=== PATIENT | female | born 1975 | race American Indian/Alaskan Native ===

== ENCOUNTER 2017-01-12 16:15 | Emergency (ER) | payer MEDICAID, OTHER ==
[2017-01-12 16:32] VITALS: BP 119/82
[2017-01-12] MEDS ORDERED: Ketorolac 30 MG/ML SDV IM ONE (17:01)
--- NOTE | 2017-01-15 10:27 | ER ---
SUBJECTIVE: The patient is a 41-year-old female who states she fell about at 9 o'clock this morning or more about 8 hours ago. She took nothing for pain. She was at her basement. Reportedly, she fell onto her right side, onto the hard plate or some object. She also has a lump on the back of her head. She had no loss of consciousness. No nausea or vomiting. No vision changes. She has no headaches except for she hit her head in the back, although where the bump is back. No neck pain. No specific back pain. No abdominal pain. She does have right lateral rib pain, however. It hurts if she moves in certain ways or she if takes deep breath. It did not hurt as bad initially but it has gotten worse. Again, no nausea or vomiting. No bleeding. No bowel or bladder changes. Denies . She took no medicines. PAST MEDICAL HISTORY: Denied. She states she is normally healthy. She does wear glasses. CURRENT MEDICINES: Denied. ALLERGIES: She denies being allergic to no meds. SOCIAL HISTORY: Noncontributory. REVIEW OF SYSTEMS: No syncope, near-syncope, changes in vision. No ENT issues, neck pain, back pain. She does have chest pain along her right lateral ribs, where she made contact with a hard object when falling. No upper or lower extremity pain. She is able to ambulate. OBJECTIVE: Vital signs: Stable. She is afebrile. General: No respiratory distress. HEENT: She is normocephalic and atraumatic with the exception of mild contusion to back of scalp with small bump area. No laceration. No repair needed. No depression, no crepitus. No Francis sign. No raccoon eyes. No clear drainage from ENT. Neck: Full range of motion and nontender. Back: No spinal tenderness. Chest: Chest wall is unremarkable with the exception of right lateral ribs. There is no bruising. No crepitus. No deformity. She can take deep breaths but is painful to her at this area. Abdomen: Otherwise unremarkable. Extremities: Lower and upper extremities, otherwise, unremarkable. X-ray is performed of her chest and right ribs. There are no fractures noted. No acute findings. EMERGENCY ROOM COURSE: She was given injection of Toradol. ASSESSMENT: Fall with contusion to the right chest wall as well as occipital scalp contusion. No loss of conscious. X-ray not showing any fractures. PLANS: Discharged home in stable and improved condition. Recommend take Tylenol and ibuprofen on a regular basis per package instructions, go and buy some [id number] and begin taking up. This will be her baseline pain relief. A small prescription of tramadol 50 mg 1 p.o. t.i.d. p.r.n. severe pain not controlled by Tylenol or ibuprofen, can be used, #20, no refills. She will follow up with her PCP as needed. Recommend heat, ice, deep breathing, keep active, and hot showers. [facility] /[id number]
== END 2017-01-12 17:20 | disposition home or self-care (01) ==
LOC: DL.ED 16:15
DX: S20.211A Contusion of right front wall of thorax, initial encounter (principal); S00.03XA Contusion of scalp, initial encounter; W19.XXXA Unspecified fall, initial encounter
CPT/HCPCS: 71101; 96372; 99283; J1885

== ENCOUNTER 2017-03-03 14:29 | Emergency (ER) | payer MEDICAID, OTHER ==
[2017-03-03] MEDS ORDERED: Sodium Chloride 0.9% 10 ML Syringe FLUSH PRN (14:39)
[2017-03-03] MEDS ORDERED: Ondansetron 4 MG/2 ML SDV IV ONE (14:41)
[2017-03-03] MEDS ORDERED: Activated Charcoal/Water Susp 50 GM/240 ML Tube PO ONE ×2 (14:41→15:32)
[2017-03-03] MEDS ORDERED: Sodium Chloride 0.9% 1,000 ML IV ONE (14:42)
[2017-03-03 15:14] LABS: CHLORIDE,CL 102 mmol/L (101-111); SODIUM,NA 134 mmol/L (135-145)
[2017-03-03 15:15] LABS: ACETAMINOPHEN < 10
--- NOTE | 2017-03-03 16:54 | EDM.PDOC ---
Scribed by Rebeka Montero 03/03/17 1640 Rory Burgos MD ED HPI Behavioral Health - General Chief Complaint: Drug or Alcohol Abuse Stated Complaint: BY AMBULANCE Time Seen by Provider: 03/03/17 14:33 Source of Information: Reports: EMS, RN, RN notes reviewed Exam Limitations: Reports: Altered mental status, Other (loss of consciousness) - History of Present Illness INITIAL COMMENTS - FREE TEXT/NARRATIVE: Arrives by ambulance approximately 30 minutes after ingesting approximately 30 tablets of Duloxetine or some other medication or combination of meds. EMS reports several empty pill bottles and different tablets scattered in piles on her dresser. Patient admits to suicide attempt. Patient unable to provide any further history. Onset of Symptoms: Reports: today Severity: severe - SAD Persons Scale (SPS) SPS Sex: Female SPS Age: Between 18-65 Years of Age SPS Depression: Yes SPS Previous Suicide Attempts: Yes SPS Rational Thinking Loss: Yes SPS Social Support Deficit: No SPS Organized Suicide Plan: Yes SPS No Spouse/Significant Other: Yes SPS Sickness: No SPS Sad Person Scale Score: 5 - Related Data Allergies Allergy/AdvReac Type Severity Reaction Status Date / Time No Known Allergies Allergy Verified 12/16/13 17:19 Home Medications: Home Meds . [No Known Home Meds] 12/16/13 [History] Past Medical History HEENT History: Reports: Impaired vision Psychiatric History: Reports: Depression, Suicide attempt, Other (see below) ( self cutting) Endocrine/Metabolic History: Reports: Obesity/BMI 30+ Social & Family History - Family History Family Medical History: Noncontributory - Tobacco Use Smoking Status *Q: Current Every Day Smoker Years of Tobacco use: 30 Packs/Tins Daily: 0.5 Used Tobacco, but Quit: No Second Hand Smoke Exposure: Yes - Caffeine Use Caffeine Use: Reports: Coffee, Soda, Tea - Alcohol Use Days Per Week of Alcohol Use: 1 Number of Drinks Per Day: 0 Total Drinks Per Week: 0 - Recreational Drug Use Recreational Drug Use: Yes Drug Use in Last 12 Months: Yes Recreational Drug Type: Reports: Marijuana/Hashish Recreational Drug Last Use: 12-12-13 ED ROS GENERAL - Review of Systems Review Of Systems: ROS reveals no pertinent complaints other than HPI. ED EXAM, BEHAVIORAL HEALTH - Physical Exam Exam: See Below Exam Limited By: No limitations General Appearance: obese, other (unkempt and decreased LOC.) Eye Exam: bilateral eye: normal inspection Ears: normal external exam, normal canal, hearing grossly normal, normal TMs Nose: normal inspection, normal mucosa, no blood Throat/Mouth: Normal inspection, Normal lips, Normal teeth, Normal gums, Normal oropharynx, Normal voice, No airway compromise Head: atraumatic, normocephalic Neck: normal inspection, supple, non-tender, full range of motion Respiratory/Chest: no respiratory distress, lungs clear, normal breath sounds, no accessory muscle use, chest non-tender Cardiovascular: normal peripheral pulses, regular rate, rhythm, no edema, no gallop, no JVD, no murmur, no rub GI/Abdominal: other (obese benign abdomen.) Back Exam: normal inspection, full range of motion, NT Extremities: normal inspection, normal range of motion, non-tender, normal capillary refill, no pedal edema Neurological: other (decreased LOC, moves all extremities with purposeful movement. Follows commands. ) Psychiatric: other (suicidal) Skin Exam: Warm, Dry, Intact, Normal color, No rash Comments: GCS: 4/4/6: 14 EKG INTERPRETATION EKG Date: 03/03/17 Time: 15:03 Rhythm: other (sinus rhythm) Rate (beats/min): 78 [place]: LAD-left axis deviation P-wave: present QRS: normal ST-T: normal QT: normal Comparison: NA - no prior EKG COURSE, BEHAVIORAL HEALTH COMP - Course Orders, Labs, Meds: Active Orders 24 hr Category Date Time Status EKG 12 Lead [EKG Documentation Completion] [RC] STAT Care 03/03/17 14:38 Active Insert Frazier Catheter [Insert Urinary Catheter] [OM.PC] Care 03/03/17 14:45 Ordered Q24H Peripheral IV Care [RC] . DIRECTED Care 03/03/17 14:40 Active Urinary Catheter Assessment [RC] ASDIRECTED Care 03/03/17 14:41 Active Sodium Chloride 0.9% [Saline Flush] Med 03/03/17 14:39 Active 10 ml FLUSH ASDIRECTED PRN NG [Nasogastric Orogastric Tube Insertion] [OM.PC] Oth 03/03/17 14:40 Ordered Routine Peripheral IV Insertion Adult [OM.PC] Stat Oth 03/03/17 14:38 Ordered Suicide Precautions [OM.PC] Routine Oth 03/03/17 14:40 Ordered Medication Orders Sodium Chloride (Saline Flush) 10 ml FLUSH ASDIRECTED PRN PRN Reason: Keep Vein Open Last Admin: 03/03/17 15:09 Dose: 10 ml Laboratory Tests 03/03/17 03/03/17 03/03/17 Range/Units 14:40 14:40 14:40 WBC 6.5 (5.0-10.0) 10^3/uL RBC 4.80 (4.2-5.4) 10^6/uL Hgb 14.2 (12.0-16.0) g/dL Hct 43.1 (37.0-47.0) % MCV 89.8 (80-100) fL MCH 29.6 (27.0-34.0) pg MCHC 32.9 L (33.0-35.0) g/dL Plt Count 294 (150-450) 10^3/uL Neut % (Auto) 49.8 (42.2-75.2) % Lymph % (Auto) 38.6 (20.5-50.1) % [place] % (Auto) 9.8 H (2-8) % Eos % (Auto) 1.8 (1.0-3.0) % Baso % (Auto) 0.0 (0.0-1.0) % PT 9.8 (9.0-12.0) SEC INR 1.0 (0.9-1.2) APTT 25.8 (22.0-34.0) SEC Sodium 134 L (135-145) mmol/L Potassium 3.5 L (3.6-5.0) mmol/L Chloride 102 (101-111) mmol/L Carbon Dioxide 23.0 (21.0-31.0) mmol/L Anion Gap 12.5 BUN 7 (7-18) mg/dL Creatinine 0.7 (0.6-1.3) mg/dL Est Cr Clr Drug Dosing TNP Estimated GFR (MDRD) > 60 BUN/Creatinine Ratio 10.00 Glucose 87 (74-105) mg/dL Calcium 8.5 (8.4-10.2) mg/dl Total Bilirubin 0.3 (0.2-1.0) mg/dL AST 18 (10-42) IU/L ALT 16 (10-60) IU/L Alkaline Phosphatase 95 (42-121) IU/L Troponin I < 0.02 (0.00-0.02) ng/ml Total Protein 7.6 (6.7-8.2) g/dl Albumin 4.1 (3.2-5.5) g/dl Globulin 3.5 Albumin/Globulin Ratio 1.17 Amylase 52 (28-100) U/L Lipase 28 (22-51) U/L Urine Color (YELLOW) Urine Appearance (CLEAR) Urine pH (5.0-9.0) Ur Specific [place] (1.005-1.030) Urine Protein (NEGATIVE) Urine Glucose (UA) (NEGATIVE) Urine Ketones (NEGATIVE) Urine Occult Blood (NEGATIVE) Urine Nitrite (NEGATIVE) Urine Bilirubin (NEGATIVE) Urine Urobilinogen (0.2-1.0) mg/dL Ur Leukocyte Esterase (NEGATIVE) Urine RBC /HPF Urine WBC (0-5/HPF) /HPF Ur Epithelial Cells /HPF Urine Bacteria (0-FEW/HPF) /HPF Urine Mucus /LPF Urine HCG, Qual Salicylates < 4 Urine Opiates Screen (NEGATIVE) Ur Oxycodone Screen (NEGATIVE) Urine Methadone Screen (NEGATIVE) Acetaminophen < 10 Ur Barbiturates Screen (NEGATIVE) U Tricyclic Antidepress (NEGATIVE) Ur Phencyclidine Scrn (NEGATIVE) Ur Amphetamine Screen (NEGATIVE) U Methamphetamines Scrn (NEGATIVE) Urine MDMA Screen (NEGATIVE) U Benzodiazepines Scrn (NEGATIVE) Urine Cocaine Screen (NEGATIVE) U Marijuana (THC) Screen (NEGATIVE) Ethyl Alcohol 127 mg/dL 03/03/17 03/03/17 03/03/17 Range/Units 14:40 14:40 14:40 WBC (5.0-10.0) 10^3/uL RBC (4.2-5.4) 10^6/uL Hgb (12.0-16.0) g/dL Hct (37.0-47.0) % MCV (80-100) fL MCH (27.0-34.0) pg MCHC (33.0-35.0) g/dL Plt Count (150-450) 10^3/uL Neut % (Auto) (42.2-75.2) % Lymph % (Auto) (20.5-50.1) % [place] % (Auto) (2-8) % Eos % (Auto) (1.0-3.0) % Baso % (Auto) (0.0-1.0) % PT (9.0-12.0) SEC INR (0.9-1.2) APTT (22.0-34.0) SEC Sodium (135-145) mmol/L Potassium (3.6-5.0) mmol/L Chloride (101-111) mmol/L Carbon Dioxide (21.0-31.0) mmol/L Anion Gap BUN (7-18) mg/dL Creatinine (0.6-1.3) mg/dL Est Cr Clr Drug Dosing Estimated GFR (MDRD) BUN/Creatinine Ratio Glucose (74-105) mg/dL Calcium (8.4-10.2) mg/dl Total Bilirubin (0.2-1.0) mg/dL AST (10-42) IU/L ALT (10-60) IU/L Alkaline Phosphatase (42-121) IU/L Troponin I (0.00-0.02) ng/ml Total Protein (6.7-8.2) g/dl Albumin (3.2-5.5) g/dl Globulin Albumin/Globulin Ratio Amylase (28-100) U/L Lipase (22-51) U/L Urine Color Yellow (YELLOW) Urine Appearance Slightly cloudy (CLEAR) Urine pH 5.5 (5.0-9.0) Ur Specific [place] 1.020 (1.005-1.030) Urine Protein Negative (NEGATIVE) Urine Glucose (UA) Negative (NEGATIVE) Urine Ketones Negative (NEGATIVE) Urine Occult Blood Moderate H (NEGATIVE) Urine Nitrite Negative (NEGATIVE) Urine Bilirubin Negative (NEGATIVE) Urine Urobilinogen 1.0 (0.2-1.0) mg/dL Ur Leukocyte Esterase Negative (NEGATIVE) Urine RBC 5-10 H /HPF Urine WBC 0-5 (0-5/HPF) /HPF Ur Epithelial Cells Moderate H /HPF Urine Bacteria Few (0-FEW/HPF) /HPF Urine Mucus Moderate H /LPF Urine HCG, Qual Negative Salicylates Urine Opiates Screen Negative (NEGATIVE) Ur Oxycodone Screen Negative (NEGATIVE) Urine Methadone Screen Negative (NEGATIVE) Acetaminophen Ur Barbiturates Screen Negative (NEGATIVE) U Tricyclic Antidepress Negative (NEGATIVE) Ur Phencyclidine Scrn Negative (NEGATIVE) Ur Amphetamine Screen Positive H (NEGATIVE) U Methamphetamines Scrn Positive H (NEGATIVE) Urine MDMA Screen Negative (NEGATIVE) U Benzodiazepines Scrn Negative (NEGATIVE) Urine Cocaine Screen Negative (NEGATIVE) U Marijuana (THC) Screen Positive H (NEGATIVE) Ethyl Alcohol mg/dL Medications Generic Name Dose Route Start Last Admin Trade Name Freq PRN Reason Stop Dose Admin Sodium Chloride 10 ml 03/03/17 14:39 03/03/17 15:09 Saline Flush FLUSH 10 ml ASDIRECTED PRN Administration Keep Vein Open Discontinued Medications Generic Name Dose Route Start Last Admin Trade Name Freq PRN Reason Stop Dose Admin Charcoal 50 gm 03/03/17 14:41 03/03/17 15:09 Actidose-Aqua PO 03/03/17 14:42 50 gm ONETIME ONE Administration Charcoal 50 gm 03/03/17 15:32 03/03/17 15:54 Actidose-Aqua PO 03/03/17 15:33 50 gm ONETIME ONE Administration Sodium Chloride 1,000 mls @ 999 mls/hr 03/03/17 14:42 03/03/17 15:09 Normal Saline IV 03/03/17 15:42 999 mls/hr .BOLUS ONE Administration Ondansetron HCl 4 mg 03/03/17 14:41 03/03/17 15:09 Zofran IV 03/03/17 14:42 4 mg ONETIME ONE Administration Re-Assessment/Re-Exam: NG tube by RN and Frazier catheter by RN. Departure - Departure Time of Disposition: 15:45 Disposition: DC/Tfer to Acute Hospital 02 Condition: critical Clinical Impression: Suicide attempt by substance overdose Qualifiers: Encounter type: initial encounter Qualified Code(s): T65.92XA - Toxic effect of unspecified substance, intentional self-harm, initial encounter Alcohol intoxication Qualifiers: Complication of substance-induced condition: uncomplicated Qualified Code(s): F10.920 - Alcohol use, unspecified with intoxication, uncomplicated Forms: ED Department Discharge, Interfacility Transfer EMTALA - My Orders Last 24 Hours: My Active Orders 03/03/17 14:38 EKG 12 Lead [EKG Documentation Completion] [RC] STAT Peripheral IV Insertion Adult [OM.PC] Stat 03/03/17 14:39 Sodium Chloride 0.9% [Saline Flush] 10 ml FLUSH ASDIRECTED PRN 03/03/17 14:40 Peripheral IV Care [RC] . DIRECTED NG [Nasogastric Orogastric Tube Insertion] [OM.PC] Routine Suicide Precautions [OM.PC] Routine 03/03/17 14:41 Urinary Catheter Assessment [RC] ASDIRECTED 03/03/17 14:45 Insert Frazier Catheter [Insert Urinary Catheter] [OM.PC] Q24H - Assessment/Plan Last 24 Hours: My Active Orders 03/03/17 14:38 EKG 12 Lead [EKG Documentation Completion] [RC] STAT Peripheral IV Insertion Adult [OM.PC] Stat 03/03/17 14:39 Sodium Chloride 0.9% [Saline Flush] 10 ml FLUSH ASDIRECTED PRN 03/03/17 14:40 Peripheral IV Care [RC] . DIRECTED NG [Nasogastric Orogastric Tube Insertion] [OM.PC] Routine Suicide Precautions [OM.PC] Routine 03/03/17 14:41 Urinary Catheter Assessment [RC] ASDIRECTED 03/03/17 14:45 Insert Frazier Catheter [Insert Urinary Catheter] [OM.PC] Q24H I have read and agree with the documentation that has been completed regarding this visit. By signing this record, I attest that the documentation was completed in my physical presence and is an accurate record of the encounter.
[2017-03-03 17:40] VITALS: BP 132/96
--- NOTE | 2017-03-25 14:37 | EKG ---
03/03/2017 - COY REYEZ - EKG per my reading, shows sinus rhythm at a rate of 78, no acute ST changes. [facility] /[id number]
== END 2017-03-03 16:20 ==
LOC: DL.ED 14:29
DX: T43.212A Poisoning by selective serotonin and norepinephrine reuptake inhibitors, intentional self-harm, initial encounter (principal); F10.920 Alcohol use, unspecified with intoxication, uncomplicated; F32.9 Major depressive disorder, single episode, unspecified; E66.9 Obesity, unspecified; F17.210 Nicotine dependence, cigarettes, uncomplicated; Y90.6 Blood alcohol level of 120-199 mg/100 ml
CPT/HCPCS: 36415; 43753; 51702; 71010; 80053; 80305; 81001; 81025; 82150; 83690; 84484; 85025; 85610; 85730; 93005; 96374; 99285; G0480; J2405; J7030; J7050

== ENCOUNTER 2019-02-27 07:10 | Day surgery (SDC) | payer MEDICAID, OTHER ==
[2019-02-27] MEDS ORDERED: Bupivacaine 0.5% 30 ML SDV INJECT ONE ×3 (07:11→09:51)
[2019-02-27] MEDS ORDERED: Propofol 200 MG/20 ML SDV IV ONE (07:11)
[2019-02-27] MEDS ORDERED: Betamethasone Acetate/Betamethasone Sod Phosphate 30 MG/5 ML MDV IM ONE (07:11)
[2019-02-27] MEDS ORDERED: Ondansetron 4 MG/2 ML SDV IV ONE (07:11)
[2019-02-27] MEDS ORDERED: Lidocaine 1% 30 ML SDV INJECT ONE ×3 (07:11→09:51)
[2019-02-27] MEDS ORDERED: fentaNYL 100 MCG/2 ML SDV IV ONE (07:11)
[2019-02-27] MEDS ORDERED: Midazolam 1 MG/ML 2 ML SDV IV ONE (07:11)
[2019-02-27] MEDS ORDERED: Lidocaine 1% 30 ML SDV ONE (07:46)
[2019-02-27] MEDS ORDERED: Bupivacaine 0.5% 30 ML SDV ONE (07:46)
[2019-02-27] MEDS ORDERED: Sodium Chloride 0.9% 10 ML Syringe FLUSH PRN ×2 (07:54)
[2019-02-27] MEDS ORDERED: Lactated Ringers 1,000 ML IV SCH (08:00)
[2019-02-27] MEDS ORDERED: Betamethasone Acetate/Betamethasone Sod Phosphate 30 MG/5 ML MDV ONE ×2 (08:10→09:54)
[2019-02-27] MEDS ORDERED: Acetaminophen/oxyCODONE 325-5 MG Tab PO PRN (10:25)
--- NOTE | 2019-02-27 10:28 | PCM.OPNOTE ---
- General Post-Op/Procedure Note Date of Surgery/Procedure: 02/27/19 Operative Procedure(s): right foot open plantar fasciectomy with bone spur excision, left foot plantar fascia cortisone injection Pre Op Diagnosis: b/l foot plantar fasciitis with bone spur Post-Op Diagnosis: varun Anesthesia Technique: Local, MAC Primary Surgeon: Melissa Johnson Anesthesia Provider: Irwin Porras EBL in mLs: 5 Complications: none Condition: Good Free Text/Narrative:: Pt tolerated procedure well and was transported to recovery with vascular status intact to right foot. Well padded L&U splint with foot in slight dorsiflexion. Injection to left foot.
--- NOTE | 2019-02-27 12:16 | OR ---
DATE: 02/27/2019 PREOPERATIVE DIAGNOSIS: Bilateral plantar fasciitis with bone spur. POSTOPERATIVE DIAGNOSIS: Bilateral plantar fasciitis with bone spur. PROCEDURE PERFORMED: 1. Right foot open plantar fasciectomy with bone spur excision. 2. Left foot plantar fascia cortisone injection. ANESTHESIA: Local MAC with preoperative local block of 10 mL of 1:1 mixture of 1% lidocaine plain with 0.5% Marcaine plain. TOURNIQUET TIME: 29 minutes, pneumatic ankle tourniquet. ESTIMATED BLOOD LOSS: Minimal. SPECIMEN REMOVED: None. COMPLICATIONS: None. INDICATIONS: Renee is a 43-year-old female, who presents with bilateral heel pain. She has been dealing with this heel pain for several years now. She had been doctoring out at [facility] for the heel pain where they had tried multiple different options including custom orthotics, physical therapy, stretching exercises, activity and shoe modifications with no relief. She is here for surgical consult today as she has failed conservative therapy. X-rays of the bilateral feet reveal no signs of fracture present, plantar heel spur present. The patient voiced good understanding of the proposed procedure and possible complications and elects to have surgery at this time. DESCRIPTION OF PROCEDURE: The patient was taken to the operating room lying in supine position. After adequate anesthesia induction as described above, the right foot was prepped and draped in the usual sterile fashion. A pneumatic ankle tourniquet was inflated to 225 mmHg. Attention was then directed to the plantar aspect of the right foot at the instep, a transverse skin incision was made in this area to gain access to the plantar fascia band. Sharp and blunt dissection was performed down to the level of the plantar fascia band. There was noted to be severe thickening of the band in this area at the insertion site. An approximately 1 centimeter squared section of the plantar fascia band, both the central and medial aspect, was removed and the area was released. The area was inspected and no further tightness was noted. A rongeur was used to remove the bone spur at the plantar calcaneus and a bone rasp was used to smooth out the area. Fluoroscopy was used to verify the spur had been completely excised. The area was irrigated with copious amounts of sterile saline. Deep closure was completed with 3-0 Vicryl and skin closure was completed with 4-0 nylon. After the sterile dressing was applied to the right foot, the left foot was then prepped with alcohol and an injection of 2 mL of betamethasone was injected into the left foot plantar fascia insertion site. For the right foot, a fluff, Xeroform, Webril, and a well-padded L and U splint were applied with the foot in 90 degrees. She will be nonweightbearing. The patient tolerated the procedure well and was transferred to recovery with vital signs stable in good condition with vascular status intact to the right foot as noted by immediate hyperemia upon deflation of the ankle tourniquet. She was then discharged home when she met hospital discharge requirements. [facility] /[id number]
[2019-02-27 13:32] VITALS: BP 130/84
== END 2019-02-27 12:24 | disposition home or self-care (01) ==
LOC: DL.SDS 07:10
PROVIDERS: ATTEND Podiatrist
DX: M72.2 Plantar fascial fibromatosis (principal); M77.31 Calcaneal spur, right foot; E55.9 Vitamin D deficiency, unspecified; F17.210 Nicotine dependence, cigarettes, uncomplicated; Z79.899 Other long term (current) drug therapy
CPT/HCPCS: 20550; 28062; 28119; J0702; J2001; J2250; J2405; J2704; J3010; J3490; J7120

== ENCOUNTER 2020-01-10 03:19 | Emergency (ER) | payer MEDICAID, OTHER ==
[2020-01-10 03:35] VITALS: BP 109/75; PULSE 107
[2020-01-10 03:57] LABS: ANION GAP 18.1 mEq/L (7-13); CHLORIDE,CL 106 mmol/L (98-107); SODIUM,NA 141 mmol/L (136-145)
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
[2020-01-10] MEDS: Potassium Chloride 10 MEQ Tab.ER PO ONE (05:10)
== END 2020-01-10 05:12 | disposition home or self-care (01) ==
LOC: DL.ED 03:19
DX: S02.2XXA Fracture of nasal bones, initial encounter for closed fracture (principal); S02.40DA Maxillary fracture, left side, initial encounter for closed fracture; F10.120 Alcohol abuse with intoxication, uncomplicated; Y90.8 Blood alcohol level of 240 mg/100 ml or more; E66.9 Obesity, unspecified; F17.210 Nicotine dependence, cigarettes, uncomplicated; Z79.899 Other long term (current) drug therapy; Z68.31 Body mass index [BMI] 31.0-31.9, adult; Y04.0XXA Assault by unarmed brawl or fight, initial encounter
CPT/HCPCS: 36415; 70450; 70486; 80053; 80307; 85025; 99284; A9270

== ENCOUNTER 2021-06-30 20:22 | Emergency (ER) | payer MEDICAID ==
--- NOTE | 2021-06-30 19:57 | EDM.PDOCBH ---
ED HPI GENERAL MEDICAL PROBLEM - General Stated Complaint: AMBULANCE Time Seen by Provider: 06/30/21 20:30 Source of Information: Reports: Patient, EMS, Old Records, RN Notes Reviewed History Limitations: Reports: Intoxication - History of Present Illness INITIAL COMMENTS - FREE TEXT/NARRATIVE: Renee is a 45 y/o female who presents to the ED via [facility] for complaints of intoxication and accidental Trazodone overdose. The patient states she typically takes two of her prescribed Trazodone for sleep as one no longer works for her, however she took three today as her family members were home. The patient notes she has been drinking large quantities of alcohol for the past several days; she denies recreational drug use. She denies recent illness, fever, shaking chills, vision changes, dizziness, chest pain/pressure, shortness of breath, nausea, vomiting, abdominal pain, or diarrhea. She is unsure of her last meal. The patient denies suicidality and has no plan to harm herself. - Related Data Allergies Allergy/AdvReac Type Severity Reaction Status Date / Time No Known Allergies Allergy Verified 01/10/20 03:37 Home Meds: Home Meds Cholecalciferol (Vitamin D3) [Vitamin D3] 1,000 units PO ASDIRECTED 02/26/19 [History] DULoxetine HCl [Cymbalta] 60 mg PO DAILY 02/26/19 [History] DULoxetine [Cymbalta] 30 mg PO DAILY 02/26/19 [History] Ibuprofen [Motrin] 800 - 1,600 mg PO BID PRN 02/26/19 [History] Lidocaine 5% [Lidoderm 5%] 1 - 2 patch TOP ASDIRECTED PRN 02/26/19 [History] Methocarbamol [Robaxin] 500 mg PO QID PRN 02/26/19 [History] Past Medical History - Past Health History Medical/Surgical History: Denies Medical/Surgical History HEENT History: Reports: Impaired Vision Cardiovascular History: Reports: None Respiratory History: Reports: None Gastrointestinal History: Reports: None Genitourinary History: Reports: None 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: , 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 Musculoskeletal History: Reports: Back Pain, Chronic, Fracture Other Musculoskeletal History: RIGHT WRIST FRACTURE Neurological History: Reports: Concussion Psychiatric History: Reports: Depression, Suicide Attempt, Other (See Below) Endocrine/Metabolic History: Reports: Obesity/BMI 30+, Vitamin D Deficiency Hematologic History: Reports: None Immunologic History: Reports: None Oncologic (Cancer) History: Reports: None Dermatologic History: Reports: None - Infectious Disease History Infectious Disease History: Reports: None - Past Surgical History Head Surgeries/Procedures: Reports: None HEENT Surgical History: Reports: None Cardiovascular Surgical History: Reports: None Respiratory Surgical History: Reports: None GI Surgical History: Reports: None Female Surgical History: Reports: None Endocrine Surgical History: Reports: None Neurological Surgical History: Reports: None Musculoskeletal Surgical History: Reports: None Oncologic Surgical History: Reports: None Dermatological Surgical History: Reports: None Social & Family History - Family History Family Medical History: No Pertinent Family History Respiratory: Reports: Asthma Endocrine/Metabolic: Reports: Diabetes, type II - Caffeine Use Caffeine Use: Reports: Coffee, Soda ED ROS GENERAL - Review of Systems Review Of Systems: Comprehensive ROS is negative, except as noted in HPI. ED EXAM, BEHAVIORAL HEALTH - Physical Exam Exam: See Below Exam Limited By: Intoxication General Appearance: Alert, Obese, Other (Unkept and intoxicated) Eye Exam: Bilateral Eye: Conjunctival Injection, EOMI, PERRL (4mm) Ears: Normal External Exam, Normal Canal, Hearing Grossly Normal, Normal TMs Nose: Normal Inspection, Normal Mucosa, No Blood Throat/Mouth: Normal Voice, No Airway Compromise. No: Normal Lips (Dry, cracked), Normal Oropharynx (Dry mucous membranes) Head: Atraumatic, Normocephalic Neck: Normal Inspection, Supple, Non-Tender, Full Range of Motion. No: Tender Lateral, Tender Midline Respiratory/Chest: No Respiratory Distress, Lungs Clear, Normal Breath Sounds, No Accessory Muscle Use, Chest Non-Tender Cardiovascular: Normal Peripheral Pulses, Regular Rate, Rhythm, No Gallop, No Murmur, No Rub GI/Abdominal: Normal Bowel Sounds, Soft, Non-Tender (Female) Exam: Deferred Rectal (Female) Exam: Deferred Back Exam: Normal Inspection, Full Range of Motion Extremities: Normal Inspection, Normal Range of Motion, Non-Tender, Normal Capillary Refill Neurological: Alert, Oriented x 3, Opens Eyes to Commands, Withdraws to Pain. No: Memory Loss Remote Events, Memory Loss Recent Events, Tongue Deviation (L), Tongue Deviation (R) Psychiatric: Alert, Oriented, Restless, Inattentive. No: Non-Communicative, Poor Eye Contact, Uncooperative, Withdrawn, Homicidal Thoughts, Cheondoism Delusions, Suicidal Plan, Suicidal Thoughts, Tangential Thoughts, Auditory Hallucinations, Visual Hallucinations, Grandiose Thoughts, Pressured Speech, Paranoid Thoughts, Threatening Behavior Skin Exam: Warm, Dry, Intact, Normal color, No rash. No: Cyanosis, Diaphoretic, Ecchymosis, Erythema, Jaundice, Mottled, Needle johnson, Pallor, Petechiae, Signs of self injury #1 Interpretation EKG Date: 07/01/21 Time: 01:48 Rhythm: NSR Rate (Beats/Min): 69 [place]: Normal P-Wave: Present QRS: Normal ST-T: Normal QT: Normal [place]/PQ Interval: 0.145 Comparison: No Change EKG Interpretation Comments: NSR; q-wave III; No evidence of acute myocardial ischemia COURSE, BEHAVIORAL HEALTH COMP - Course Vital Signs: Last Vital Signs Temp 97.0 F 06/30/21 21:03 Pulse 88 06/30/21 21:03 Resp 14 06/30/21 21:03 BP 104/55 L 06/30/21 21:03 Pulse Ox 93 L 06/30/21 21:03 Orders, Labs, Meds: Laboratory Tests 06/30/21 06/30/21 06/30/21 Range/Units 20:20 20:20 20:20 WBC 7.7 (5.0-10.0) 10^3/uL RBC 4.18 L (4.2-5.4) 10^6/uL Hgb 12.6 (12.0-16.0) g/dL Hct 38.5 (37.0-47.0) % MCV 92.1 D (80-100) fL MCH 30.1 (27.0-34.0) pg MCHC 32.7 L (33.0-35.0) g/dL Plt Count 268 (150-450) 10^3/uL Neut % (Auto) 60.1 (42.2-75.2) % Lymph % (Auto) 30.3 (20.5-50.1) % Boyd % (Auto) 7.8 (2-8) % Eos % (Auto) 1.7 (1.0-3.0) % Baso % (Auto) 0.1 (0.0-1.0) % Sodium 147 H (136-145) mmol/L Potassium 2.8 L (3.5-5.1) mmol/L Chloride 107 (98-107) mmol/L Carbon Dioxide 26 (21-32) mmol/L Anion Gap 16.8 H (7-13) mEq/L BUN 11 (7-18) mg/dL Creatinine 0.63 (0.55-1.02) mg/dL Est Cr Clr Drug Dosing TNP Estimated GFR (MDRD) > 60 BUN/Creatinine Ratio 17.5 (No establ ref range) Glucose 113 H (70-99) mg/dL Lactic Acid 1.4 (0.4-2.0) mmol/L Calcium 8.4 L (8.5-10.1) mg/dL Magnesium 2.1 (1.8-2.4) mg/dL Total Bilirubin 0.1 L (0.2-1.0) mg/dL AST 119 H (15-37) U/L ALT 140 H (14-59) U/L Alkaline Phosphatase 108 (46-116) U/L Troponin I High Sens < 4 (<=51) pg/mL C-Reactive Protein 1.3 H (0.0-0.9) mg/dL Total Protein 6.8 (6.4-8.2) g/dL Albumin 3.2 L (3.4-5.0) g/dL Globulin 3.6 Albumin/Globulin Ratio 0.89 HCG, Qual Negative Urine Color (YELLOW) Urine Appearance (CLEAR) Urine pH (5.0-9.0) Ur Specific [place] (1.005-1.030) Urine Protein (NEGATIVE) Urine Glucose (UA) (NEGATIVE) Urine Ketones (NEGATIVE) Urine Occult Blood (NEGATIVE) Urine Nitrite (NEGATIVE) Urine Bilirubin (NEGATIVE) Urine Urobilinogen (0.2-1.0) mg/dL Ur Leukocyte Esterase (NEGATIVE) Urine RBC (0-5) /HPF Urine WBC (0-5/HPF) /HPF Ur Epithelial Cells (NOT SEEN) /HPF Urine Bacteria (0-FEW/HPF) /HPF Salicylates (2.8-20(Therapeutic)) mg/dL Urine Opiates Screen (NEGATIVE) Ur Oxycodone Screen (NEGATIVE) Urine Methadone Screen (NEGATIVE) Acetaminophen 0 L (10-30 (Therapeutic)) ug/mL Ur Barbiturates Screen (NEGATIVE) U Tricyclic Antidepress (NEGATIVE) Ur Phencyclidine Scrn (NEGATIVE) Ur Amphetamine Screen (NEGATIVE) U Methamphetamines Scrn (NEGATIVE) Urine MDMA Screen (NEGATIVE) U Benzodiazepines Scrn (NEGATIVE) Urine Cocaine Screen (NEGATIVE) U Marijuana (THC) Screen (NEGATIVE) Ethyl Alcohol 257 (0) mg/dL 06/30/21 06/30/21 06/30/21 Range/Units 20:20 20:27 20:27 WBC (5.0-10.0) 10^3/uL RBC (4.2-5.4) 10^6/uL Hgb (12.0-16.0) g/dL Hct (37.0-47.0) % MCV (80-100) fL MCH (27.0-34.0) pg MCHC (33.0-35.0) g/dL Plt Count (150-450) 10^3/uL Neut % (Auto) (42.2-75.2) % Lymph % (Auto) (20.5-50.1) % Boyd % (Auto) (2-8) % Eos % (Auto) (1.0-3.0) % Baso % (Auto) (0.0-1.0) % Sodium (136-145) mmol/L Potassium (3.5-5.1) mmol/L Chloride (98-107) mmol/L Carbon Dioxide (21-32) mmol/L Anion Gap (7-13) mEq/L BUN (7-18) mg/dL Creatinine (0.55-1.02) mg/dL Est Cr Clr Drug Dosing Estimated GFR (MDRD) BUN/Creatinine Ratio (No establ ref range) Glucose (70-99) mg/dL Lactic Acid (0.4-2.0) mmol/L Calcium (8.5-10.1) mg/dL Magnesium (1.8-2.4) mg/dL Total Bilirubin (0.2-1.0) mg/dL AST (15-37) U/L ALT (14-59) U/L Alkaline Phosphatase (46-116) U/L Troponin I High Sens (<=51) pg/mL C-Reactive Protein (0.0-0.9) mg/dL Total Protein (6.4-8.2) g/dL Albumin (3.4-5.0) g/dL Globulin Albumin/Globulin Ratio HCG, Qual Urine Color Light yellow (YELLOW) Urine Appearance Slightly cloudy (CLEAR) Urine pH 7.0 (5.0-9.0) Ur Specific [place]stein 1.015 (1.005-1.030) Urine Protein Negative (NEGATIVE) Urine Glucose (UA) Negative (NEGATIVE) Urine Ketones Negative (NEGATIVE) Urine Occult Blood Large H (NEGATIVE) Urine Nitrite Negative (NEGATIVE) Urine Bilirubin Negative (NEGATIVE) Urine Urobilinogen 0.2 (0.2-1.0) mg/dL Ur Leukocyte Esterase Small H (NEGATIVE) Urine RBC 0-5 (0-5) /HPF Urine WBC 0-5 (0-5/HPF) /HPF Ur Epithelial Cells Occasional (NOT SEEN) /HPF Urine Bacteria Moderate H (0-FEW/HPF) /HPF Salicylates < 2.8 L (2.8-20(Therapeutic)) mg/dL Urine Opiates Screen Negative (NEGATIVE) Ur Oxycodone Screen Negative (NEGATIVE) Urine Methadone Screen Negative (NEGATIVE) Acetaminophen (10-30 (Therapeutic)) ug/mL Ur Barbiturates Screen Negative (NEGATIVE) U Tricyclic Antidepress Negative (NEGATIVE) Ur Phencyclidine Scrn Negative (NEGATIVE) Ur Amphetamine Screen Negative (NEGATIVE) U Methamphetamines Scrn Positive H (NEGATIVE) Urine MDMA Screen Negative (NEGATIVE) U Benzodiazepines Scrn Negative (NEGATIVE) Urine Cocaine Screen Negative (NEGATIVE) U Marijuana (THC) Screen Negative (NEGATIVE) Ethyl Alcohol (0) mg/dL Medications Discontinued Medications Generic Name Dose Route Start Last Admin Trade Name Freq PRN Reason Stop Dose Admin Multivitamins/Minerals 10 ml/ 1,011.2 mls @ 999 mls/hr 06/30/21 19:56 06/30/21 21:58 Thiamine HCl 100 mg/ Folic IV 06/30/21 20:56 999 mls/hr Acid 1 mg/ Lactated Ringer's .BOLUS ONE Administration Potassium Chloride 20 meq/ 100 mls @ 50 mls/hr 06/30/21 21:19 06/30/21 21:59 Premix IV 06/30/21 23:18 50 mls/hr ONETIME ONE Administration Nitrofurantoin Macrocrystals 100 mg 07/01/21 01:24 07/01/21 01:38 Nitrofurantoin Monohydrate/Macrocrystalline 100 Mg Cap PO 07/01/21 01:25 100 mg ONETIME ONE Administration Potassium Chloride 40 meq 07/01/21 01:16 07/01/21 01:38 Potassium Chloride 10 Meq Tab.Er PO 07/01/21 01:17 40 meq ONETIME ONE Administration Re-Assessment/Re-Exam: 06/30/21 Poison Control contacted given supratherapeutic dose of Trazodone. Blood work and EKG performed. Banana bag initiated. Will continue to monitor patient, per Poison Control recommendations. KCl 40mEq PO administered. Macrobid administered. Findings of examination and lab work reviewed with patient. Will treat UTI with Macrobid. Discussed supportive cares for UTI with patient. Patient instructed to follow up with primary care provider regarding today's visit. Red flag signs and symptoms which would warrant reevaluation reviewed. Patient verbalized understanding and agreement with the plan of care. Departure - Departure Time of Disposition: :22 Disposition: Home, Self-Care 01 Condition: Fair Clinical Impression: Hypokalemia, Methamphetamine use Acute alcohol intoxication Qualifiers: Complication of substance-induced condition: uncomplicated Qualified Code(s): F10.920 - Alcohol use, unspecified with intoxication, uncomplicated Accidental medication overdose Qualifiers: Encounter type: initial encounter Qualified Code(s): T50.901A - Poisoning by unspecified drugs, medicaments and biological substances, accidental (unintentional), initial encounter Urinary tract infection Qualifiers: Urinary tract infection type: acute cystitis Hematuria presence: with hematuria Qualified Code(s): N30.01 - Acute cystitis with hematuria - Discharge Information *PRESCRIPTION DRUG MONITORING PROGRAM REVIEWED*: Not Applicable *COPY OF PRESCRIPTION DRUG MONITORING REPORT IN PATIENT ENOCH: Not Applicable Instructions: Hypokalemia, Urinary Tract Infection, Adult Referrals: PCP,None [Ordering Only Provider] - Forms: ED Department Discharge Additional Instructions: Rx: Macrobid 1.) Take all of your antibiotic until gone, even as symptoms improve. 2.) Eat a potassium-rich diet. 3.) Drink plenty of water to stay hydrated and to flush out kidneys/bladder. 4.) Do not use methamphetamines. 5.) Do not drink alcohol to excess.
[~2021-06-30 20:22] MED LIST: MVI, Adult with Vitamin K 10 ML, Thiamine 100 MG, Folic Acid 1 MG in Lactated Ringers 1... IV ONE
[2021-06-30 20:39] LABS: AMPHETAMINES,URINE NEGATIVE (NEGATIVE); BARBITURATES,URINE NEGATIVE (NEGATIVE); BENZODIAZEPINE,URINE NEGATIVE (NEGATIVE); MDMA (ECSTASY), URINE NEGATIVE (NEGATIVE); METHADONE,URINE NEGATIVE (NEGATIVE); METHAMPHETAMINES,URINE POSITIVE (NEGATIVE); OPIATES,URINE NEGATIVE (NEGATIVE); OXYCODONE,URINE NEGATIVE (NEGATIVE); PHENCYCLIDINE,URINE NEGATIVE (NEGATIVE); TCA,URINE NEGATIVE (NEGATIVE)
[2021-06-30 20:48] LABS: ANION GAP 16.8 mEq/L (7-13); CHLORIDE,CL 107 mmol/L (98-107); SODIUM,NA 147 mmol/L (136-145)
[2021-06-30 20:49] LABS: ACETAMINOPHEN 0 ug/mL (10-30 (Therapeutic))
[2021-06-30 21:04] VITALS: BP 104/55; PULSE 88
[2021-06-30] MEDS ORDERED: Potassium Chloride 20 MEQ in Premix Bag 1 BAG IV ONE (21:19)
[2021-07-01] MEDS ORDERED: Potassium Chloride 10 MEQ Tab.ER PO ONE (01:16)
[2021-07-01] MEDS ORDERED: Nitrofurantoin Monohydrate/Macrocrystalline 100 MG Cap PO ONE (01:24)
== END 2021-07-01 02:00 | disposition home or self-care (01) ==
LOC: DL.ED 20:22
DX: T43.211A Poisoning by selective serotonin and norepinephrine reuptake inhibitors, accidental (unintentional), initial encounter (principal); F10.120 Alcohol abuse with intoxication, uncomplicated; N30.01 Acute cystitis with hematuria; E87.6 Hypokalemia; F15.90 Other stimulant use, unspecified, uncomplicated; E66.9 Obesity, unspecified; Y90.8 Blood alcohol level of 240 mg/100 ml or more; Z79.899 Other long term (current) drug therapy
CPT/HCPCS: 36415; 80053; 80143; 80179; 80305; 80307; 81001; 83605; 83735; 84484; 84703; 85025; 86140; 87086; 93005; 96365; 96366; 96368; 99284; A9270; J3411; J3480; J7120; J3490

== ENCOUNTER 2021-09-21 13:44 | Emergency (ER) | payer MEDICAID ==
[2021-09-21 13:49] VITALS: BP 126/98; PULSE 112
[2021-09-21 14:22] LABS: ANION GAP 17.9 mEq/L (7-13); CHLORIDE,CL 102 mmol/L (98-107); SODIUM,NA 137 mmol/L (136-145)
--- NOTE | 2021-09-21 14:29 | EDM.PDOC ---
ED HPI GENERAL MEDICAL PROBLEM - General Chief Complaint: Respiratory Problem Time Seen by Provider: 09/21/21 14:15 Source of Information: Reports: Patient History Limitations: Reports: No Limitations - History of Present Illness INITIAL COMMENTS - FREE TEXT/NARRATIVE: This 45 yo female patient was brought to the ED by EMS due to a cough, COVID, shortness of breath and chest tightness. The patient reports she tested positive for COVID yesterday after being exposed to COVID from her sister. The patient reports she has been having chest pain over the past 3 days do to a constant cough. The patient reports she was called today by someone from [id number], the patient reported her symptoms and the person from [facility] called an ambulance for the patient. Duration: Day(s):, Constant, Getting Worse Location: Reports: Chest, Other Quality: Reports: Ache, Dull Severity: Moderate Improves with: Reports: None Worsens with: Reports: None Associated Symptoms: Reports: Chest Pain, cough w sputum, Shortness of Breath Treatments [employer]RB[employer]NER: Reports: Other Medication(s) (Nyquil) Generalized Pain Score (Numeric/FACES): 8 - Related Data Allergies Allergy/AdvReac Type Severity Reaction Status Date / Time No Known Allergies Allergy Verified 09/21/21 13:44 Home Meds: Home Meds Cholecalciferol (Vitamin D3) [Vitamin D3] 1,000 units PO ASDIRECTED 02/26/19 [History] DULoxetine HCl [Cymbalta] 60 mg PO DAILY 02/26/19 [History] DULoxetine [Cymbalta] 30 mg PO DAILY 02/26/19 [History] Ibuprofen [Motrin] 800 - 1,600 mg PO BID PRN 02/26/19 [History] Lidocaine 5% [Lidoderm 5%] 1 - 2 patch TOP ASDIRECTED PRN 02/26/19 [History] Methocarbamol [Robaxin] 500 mg PO QID PRN 02/26/19 [History] Past Medical History - Past Health History Medical/Surgical History: Denies Medical/Surgical History HEENT History: Reports: Impaired Vision Cardiovascular History: Reports: None Respiratory History: Reports: None Gastrointestinal History: Reports: None Genitourinary History: Reports: None 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: , 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 Musculoskeletal History: Reports: Back Pain, Chronic, Fracture Other Musculoskeletal History: RIGHT WRIST FRACTURE Neurological History: Reports: Concussion Psychiatric History: Reports: Addiction, Depression, Suicide Attempt, Other (See Below) Endocrine/Metabolic History: Reports: Obesity/BMI 30+, Vitamin D Deficiency Hematologic History: Reports: None Immunologic History: Reports: None Oncologic (Cancer) History: Reports: None Dermatologic History: Reports: None - Infectious Disease History Infectious Disease History: Reports: None, Novel Coronavirus - Past Surgical History Head Surgeries/Procedures: Reports: None HEENT Surgical History: Reports: None Cardiovascular Surgical History: Reports: None Respiratory Surgical History: Reports: None GI Surgical History: Reports: None Female Surgical History: Reports: None Endocrine Surgical History: Reports: None Neurological Surgical History: Reports: None Musculoskeletal Surgical History: Reports: None Oncologic Surgical History: Reports: None Dermatological Surgical History: Reports: None Social & Family History - Family History Family Medical History: No Pertinent Family History Respiratory: Reports: Asthma Endocrine/Metabolic: Reports: Diabetes, type II - Tobacco Use Tobacco Use Status *Q: Current Every Day Tobacco User Years of Tobacco use: 33 Packs/Tins Daily: 0.5 - Caffeine Use Caffeine Use: Reports: Coffee - Recreational Drug Use Recreational Drug Use: No ED ROS GENERAL - Review of Systems Review Of Systems: Comprehensive ROS is negative, except as noted in HPI. ED EXAM, GENERAL - Physical Exam Exam: See Below Exam Limited By: No Limitations General Appearance: Alert, WD/WN, Moderate Distress Eye Exam: Bilateral Eye: EOMI, Normal Inspection, PERRL Ears: Normal External Exam, Normal Canal, Hearing Grossly Normal, Normal TMs Nose: Normal Inspection, Normal Mucosa, No Blood Throat/Mouth: Normal Inspection Head: Atraumatic, Normocephalic Neck: Normal Inspection, Supple, Non-Tender, Full Range of Motion Respiratory/Chest: Decreased Breath Sounds, Rhonchi (diffuse) Cardiovascular: No Edema, No Gallop, No JVD, No Murmur, No Rub, Tachycardia GI/Abdominal: Normal Bowel Sounds, Soft, Non-Tender, No Organomegaly, No Disten tion, No Abnormal Bruit, No Mass (Female) Exam: Deferred Rectal (Female) Exam: Deferred Back Exam: Normal Inspection, Full Range of Motion, NT Extremities: Normal Inspection, Normal Range of Motion, Non-Tender, Normal Capillary Refill, No Pedal Edema Neurological: Alert, Oriented, CN II-XII Intact, Normal Cognition, Normal Gait, Normal Reflexes, No Motor/Sensory Deficits Psychiatric: Normal Affect, Normal Mood Skin Exam: Warm, Dry, Intact, Normal Color, No Rash Lymphatic: No Adenopathy Course - Vital Signs Last Recorded V/S: Last Vital Signs Temp 95.7 F L 09/21/21 13:44 Pulse 112 H 09/21/21 13:44 Resp 24 H 09/21/21 13:44 BP 126/98 H 09/21/21 13:44 Pulse Ox 100 09/21/21 13:44 - Orders/Labs/Meds Orders: Active Orders 24 hr Category Date Time Status CULTURE BLOOD [BC] Stat Lab 09/21/21 14:22 Received Labs: Laboratory Tests 09/21/21 09/21/21 09/21/21 Range/Units 13:56 13:56 13:56 WBC 7.7 (5.0-10.0) 10^3/uL RBC 4.93 (4.2-5.4) 10^6/uL Hgb 14.8 D (12.0-16.0) g/dL Hct 44.6 (37.0-47.0) % MCV 90.5 (80-100) fL MCH 30.0 (27.0-34.0) pg MCHC 33.2 (33.0-35.0) g/dL Plt Count 226 (150-450) 10^3/uL Neut % (Auto) 65.7 (42.2-75.2) % Lymph % (Auto) 27.6 (20.5-50.1) % [place] % (Auto) 6.4 (2-8) % Eos % (Auto) 0.3 L (1.0-3.0) % Baso % (Auto) 0.0 (0.0-1.0) % D-Dimer, Quantitative 2630 H (0-400) ng/mL Sodium 137 D (136-145) mmol/L Potassium 3.9 (3.5-5.1) mmol/L Chloride 102 (98-107) mmol/L Carbon Dioxide 21 (21-32) mmol/L Anion Gap 17.9 H (7-13) mEq/L BUN 6 L (7-18) mg/dL Creatinine 0.80 (0.55-1.02) mg/dL Est Cr Clr Drug Dosing 84.54 mL/min Estimated GFR (MDRD) > 60 BUN/Creatinine Ratio 7.5 (No establ ref range) Glucose 123 H (70-99) mg/dL Lactic Acid (0.4-2.0) mmol/L Calcium 8.7 (8.5-10.1) mg/dL Total Bilirubin 0.3 (0.2-1.0) mg/dL AST 49 H (15-37) U/L ALT 90 H (14-59) U/L Alkaline Phosphatase 160 H (46-116) U/L Total Protein 8.0 (6.4-8.2) g/dL Albumin 3.5 (3.4-5.0) g/dL Globulin 4.5 Albumin/Globulin Ratio 0.8 11/24/21 Range/Units 13:56 WBC (5.0-10.0) 10^3/uL RBC (4.2-5.4) 10^6/uL Hgb (12.0-16.0) g/dL Hct (37.0-47.0) % MCV (80-100) fL MCH (27.0-34.0) pg MCHC (33.0-35.0) g/dL Plt Count (150-450) 10^3/uL Neut % (Auto) (42.2-75.2) % Lymph % (Auto) (20.5-50.1) % [place] % (Auto) (2-8) % Eos % (Auto) (1.0-3.0) % Baso % (Auto) (0.0-1.0) % D-Dimer, Quantitative (0-400) ng/mL Sodium (136-145) mmol/L Potassium (3.5-5.1) mmol/L Chloride (98-107) mmol/L Carbon Dioxide (21-32) mmol/L Anion Gap (7-13) mEq/L BUN (7-18) mg/dL Creatinine (0.55-1.02) mg/dL Est Cr Clr Drug Dosing mL/min Estimated GFR (MDRD) BUN/Creatinine Ratio (No establ ref range) Glucose (70-99) mg/dL Lactic Acid 1.9 (0.4-2.0) mmol/L Calcium (8.5-10.1) mg/dL Total Bilirubin (0.2-1.0) mg/dL AST (15-37) U/L ALT (14-59) U/L Alkaline Phosphatase (46-116) U/L Total Protein (6.4-8.2) g/dL Albumin (3.4-5.0) g/dL Globulin Albumin/Globulin Ratio Meds: Medications Discontinued Medications Generic Name Dose Route Start Last Admin Trade Name Dimitris PRN Reason Stop Dose Admin Iopamidol 100 ml 09/21/21 15:01 09/21/21 15:18 Iopamidol 755 Mg/Ml 100 Ml Bottle IVPUSH 09/21/21 15:02 75 ml ONETIME ONE Administration Departure - Departure Time of Disposition: 16:31 Disposition: Home, Self-Care 01 Condition: Fair Clinical Impression: COVID-19 - Discharge Information *PRESCRIPTION DRUG MONITORING PROGRAM REVIEWED*: Not Applicable *COPY OF PRESCRIPTION DRUG MONITORING REPORT IN PATIENT ENOCH: Not Applicable Instructions: Symptoms of COVID-19 - [facility] (12/20/2020), COVID-19: Quarantine vs. Isolation - [facility] (10/14/2020) Forms: ED Department Discharge Care Plan Goals: The patient was advised of the examination, lab and CT results during the visit. The patient was advised to take over the counter medications as directed for temporary symptom relief. If the patient has any additional symptoms or concerns, the patient should either return to the emergency department or visit her primary care facility. Sepsis Event Note (ED) - Evaluation Sepsis Screening Result: No Definite Risk - Focused Exam Vital Signs: Vital Signs Temp Pulse Resp BP Pulse Ox 09/21/21 13:44 95.7 F L 112 H 24 H 126/98 H 100 - My Orders Last 24 Hours: My Active Orders 09/21/21 14:22 CULTURE BLOOD [BC] Stat - Assessment/Plan Last 24 Hours: My Active Orders 09/21/21 14:22 CULTURE BLOOD [BC] Stat
[2021-09-21] MEDS ORDERED: Iopamidol 755 Mg/ML 100 ML Bottle IVPUSH ONE (15:01)
--- NOTE | 2021-09-21 15:56 | CT ---
PROCEDURE INFORMATION: Exam: CT Chest With Contrast; Diagnostic Exam date and time: 09/21/2021 3:11 PM Age: 45 years old Clinical indication: Other: Chest pain; Additional info: Chest pain, covid +, d-dimer 2600 TECHNIQUE: Imaging protocol: Diagnostic computed tomography of the chest with contrast. Radiation optimization: All CT scans at this facility use at least one of these dose optimization techniques: automated exposure control; mA and/or kV adjustment per patient size (includes targeted exams where dose is matched to clinical indication); or iterative reconstruction. Contrast material: ISOVUE 370; Contrast volume: 75 ml; Contrast route: INTRAVENOUS (IV); COMPARISON: CR Chest 1V Frontal 03/03/2017 2:59 PM FINDINGS: Lungs: Patchy bilateral pulmonary infiltrates which have a ground-glass appearance and associated interstitial thickening typical for COVID-19 pneumonia. Pleural spaces: Unremarkable. No pneumothorax. No pleural effusion. Heart: Unremarkable. No cardiomegaly. No pericardial effusion. Aorta: Unremarkable. No aortic aneurysm. Lymph nodes: Unremarkable. No enlarged lymph nodes. Liver: Diffuse fatty infiltration of the liver. Bones/joints: Unremarkable. No acute fracture. Soft tissues: Unremarkable. IMPRESSION: 1. No pulmonary embolism identified 2. Patchy bilateral ground-glass pulmonary infiltrates with a pattern in typical for COVID-19 pneumonia.
== END 2021-09-21 17:00 | disposition home or self-care (01) ==
LOC: DL.ED 13:44
DX: U07.1 COVID-19 (principal); E66.9 Obesity, unspecified; Z68.32 Body mass index [BMI] 32.0-32.9, adult; Z72.0 Tobacco use
CPT/HCPCS: 36415; 71260; 80053; 83605; 85025; 85379; 87040; 99285; Q9967

== ENCOUNTER 2021-09-26 14:43 | Emergency (ER) | payer MEDICAID ==
--- NOTE | 2021-09-26 15:42 | EDM.PDOC ---
ED HPI GENERAL MEDICAL PROBLEM - General Chief Complaint: Respiratory Problem Time Seen by Provider: 09/26/21 15:39 Source of Information: Reports: Patient, Provider ([facility]), RN, RN Notes Reviewed History Limitations: Reports: No Limitations - History of Present Illness INITIAL COMMENTS - FREE TEXT/NARRATIVE: Renee is a 45 y/o female who presents to the ED via [facility] from the [facility] at the request of her PCP with complaints of shortness of breath. The patient was diagnosed with a COVID-19 infection five days ago following symptoms that began five days prior. She received a CT chest with contrast during her evaluation at this facility on 09/22 due to an elevated d- dimer; CT was unremarkable for PE. The patient presented to [facility] stating her shortness of breath was progressively worse despite albuterol nebulizers q4h. The patient denies recent fevers, shaking chills, cough, sore throat, chest pain/pressure, palpitations, dyspepsia, abdominal pain, nausea, vomiting, or diarrhea. In addition to her nebulizers, she has taken transient doses of acetaminophen and cough syrup with mild alleviation in symptoms. The patient denies tobacco, alcohol, or recreational drug use. - Related Data Allergies Allergy/AdvReac Type Severity Reaction Status Date / Time No Known Allergies Allergy Verified 09/21/21 13:44 Home Meds: Home Meds Cholecalciferol (Vitamin D3) [Vitamin D3] 1,000 units PO ASDIRECTED 02/26/19 [History] DULoxetine HCl [Cymbalta] 60 mg PO DAILY 02/26/19 [History] DULoxetine [Cymbalta] 30 mg PO DAILY 02/26/19 [History] Ibuprofen [Motrin] 800 - 1,600 mg PO BID PRN 02/26/19 [History] Lidocaine 5% [Lidoderm 5%] 1 - 2 patch TOP ASDIRECTED PRN 02/26/19 [History] Methocarbamol [Robaxin] 500 mg PO QID PRN 02/26/19 [History] Past Medical History - Past Health History Medical/Surgical History: Denies Medical/Surgical History HEENT History: Reports: Impaired Vision Cardiovascular History: Reports: None Respiratory History: Reports: None Gastrointestinal History: Reports: None Genitourinary History: Reports: None 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: , 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 Musculoskeletal History: Reports: Back Pain, Chronic, Fracture Other Musculoskeletal History: RIGHT WRIST FRACTURE Neurological History: Reports: Concussion Psychiatric History: Reports: Depression, Suicide Attempt, Other (See Below) Endocrine/Metabolic History: Reports: Obesity/BMI 30+, Vitamin D Deficiency Hematologic History: Reports: None Immunologic History: Reports: None Oncologic (Cancer) History: Reports: None Dermatologic History: Reports: None - Infectious Disease History Infectious Disease History: Reports: None - Past Surgical History Head Surgeries/Procedures: Reports: None HEENT Surgical History: Reports: None Cardiovascular Surgical History: Reports: None Respiratory Surgical History: Reports: None GI Surgical History: Reports: None Female Surgical History: Reports: None Endocrine Surgical History: Reports: None Neurological Surgical History: Reports: None Musculoskeletal Surgical History: Reports: None Oncologic Surgical History: Reports: None Dermatological Surgical History: Reports: None Social & Family History - Family History Family Medical History: No Pertinent Family History Respiratory: Reports: Asthma Endocrine/Metabolic: Reports: Diabetes, type II - Caffeine Use Caffeine Use: Reports: Coffee, Soda ED ROS GENERAL - Review of Systems Review Of Systems: Comprehensive ROS is negative, except as noted in HPI. ED EXAM, GENERAL - Physical Exam Exam: See Below Exam Limited By: No Limitations General Appearance: Alert, No Apparent Distress Eye Exam: Bilateral Eye: EOMI, Normal Inspection, PERRL (3mm) Ears: Normal External Exam, Normal Canal, Hearing Grossly Normal, Normal TMs Ear Exam: Bilateral Ear: Auricle Normal, Canal Normal, TM normal Nose: Normal Inspection Throat/Mouth: Normal Inspection, Normal Oropharynx, Normal Voice, No Airway Compromise Head: Atraumatic, Normocephalic Neck: Normal Inspection, Supple, Non-Tender, Full Range of Motion. No: Lymphadenopathy (L), Lymphadenopathy (R) Respiratory/Chest: No Respiratory Distress, Lungs Clear, Normal Breath Sounds, No Accessory Muscle Use, Chest Non-Tender, Other (Dry cough). No: Crackles, Rales, Rhonchi, Wheezing, Stridor Cardiovascular: Normal Peripheral Pulses, Regular Rate, Rhythm, No Gallop, No Murmur, No Rub Peripheral Pulses: 2+: Radial (L), Radial (R) GI/Abdominal: Normal Bowel Sounds, Soft, Non-Tender, No Distention, No Abnormal Bruit, No Mass, Pelvis Stable. No: Guarding, Rigid, Rebound (Female) Exam: Deferred Rectal (Female) Exam: Deferred Back Exam: Normal Inspection, Full Range of Motion Extremities: Normal Inspection, Normal Range of Motion, Normal Capillary Refill Neurological: Alert, Oriented, CN II-XII Intact, Normal Cognition, Normal Gait, No Motor/Sensory Deficits Psychiatric: Normal Affect, Normal Mood Skin Exam: Warm, Dry, Intact, Normal Color, No Rash. No: Cyanosis, Jaundice, Mottled, Pallor Lymphatic: No Adenopathy Course - Vital Signs Last Recorded V/S: Last Vital Signs Temp 98.1 F 09/26/21 14:43 Pulse 88 09/26/21 14:43 Resp 16 09/26/21 14:43 BP 124/88 09/26/21 14:43 Pulse Ox 100 09/26/21 14:43 - Orders/Labs/Meds Labs: Laboratory Tests 09/26/21 09/26/21 09/26/21 Range/Units 15:18 15:18 15:18 WBC 8.1 (5.0-10.0) 10^3/uL RBC 4.33 (4.2-5.4) 10^6/uL Hgb 12.9 D (12.0-16.0) g/dL Hct 39.0 (37.0-47.0) % MCV 90.1 (80-100) fL MCH 29.8 (27.0-34.0) pg MCHC 33.1 (33.0-35.0) g/dL Plt Count 300 (150-450) 10^3/uL Neut % (Auto) 72.0 (42.2-75.2) % Lymph % (Auto) 15.8 L (20.5-50.1) % [place] % (Auto) 10.0 H (2-8) % Eos % (Auto) 2.1 (1.0-3.0) % Baso % (Auto) 0.1 (0.0-1.0) % D-Dimer, Quantitative 198 (0-400) ng/mL Sodium 136 (136-145) mmol/L Potassium 3.4 L (3.5-5.1) mmol/L Chloride 100 (98-107) mmol/L Carbon Dioxide 26 (21-32) mmol/L Anion Gap 13.4 H (7-13) mEq/L BUN 6 L (7-18) mg/dL Creatinine 0.70 (0.55-1.02) mg/dL Est Cr Clr Drug Dosing TNP Estimated GFR (MDRD) > 60 BUN/Creatinine Ratio 8.6 (No establ ref range) Glucose 101 H (70-99) mg/dL Lactic Acid (0.4-2.0) mmol/L Calcium 8.4 L (8.5-10.1) mg/dL Total Bilirubin 0.5 (0.2-1.0) mg/dL AST 34 (15-37) U/L ALT 52 (14-59) U/L Alkaline Phosphatase 147 H (46-116) U/L Troponin I High Sens < 4 (<=51) pg/mL C-Reactive Protein 10.9 H (0.0-0.9) mg/dL B-Natriuretic Peptide < 5 (0-100) pg/ml Total Protein 7.4 (6.4-8.2) g/dL Albumin 3.0 L (3.4-5.0) g/dL Globulin 4.4 Albumin/Globulin Ratio 0.68 Ethyl Alcohol < 3 (0) mg/dL 09/26/ Range/Units 15:18 WBC (5.0-10.0) 10^3/uL RBC (4.2-5.4) 10^6/uL Hgb (12.0-16.0) g/dL Hct (37.0-47.0) % MCV (80-100) fL MCH (27.0-34.0) pg MCHC (33.0-35.0) g/dL Plt Count (150-450) 10^3/uL Neut % (Auto) (42.2-75.2) % Lymph % (Auto) (20.5-50.1) % [place] % (Auto) (2-8) % Eos % (Auto) (1.0-3.0) % Baso % (Auto) (0.0-1.0) % D-Dimer, Quantitative (0-400) ng/mL Sodium (136-145) mmol/L Potassium (3.5-5.1) mmol/L Chloride (98-107) mmol/L Carbon Dioxide (21-32) mmol/L Anion Gap (7-13) mEq/L BUN (7-18) mg/dL Creatinine (0.55-1.02) mg/dL Est Cr Clr Drug Dosing Estimated GFR (MDRD) BUN/Creatinine Ratio (No establ ref range) Glucose (70-99) mg/dL Lactic Acid 1.7 (0.4-2.0) mmol/L Calcium (8.5-10.1) mg/dL Total Bilirubin (0.2-1.0) mg/dL AST (15-37) U/L ALT (14-59) U/L Alkaline Phosphatase (46-116) U/L Troponin I High Sens (<=51) pg/mL C-Reactive Protein (0.0-0.9) mg/dL B-Natriuretic Peptide (0-100) pg/ml Total Protein (6.4-8.2) g/dL Albumin (3.4-5.0) g/dL Globulin Albumin/Globulin Ratio Ethyl Alcohol (0) mg/dL Meds: Medications Discontinued Medications Generic Name Dose Route Start Last Admin Trade Name Freq PRN Reason Stop Dose Admin Acetaminophen 1,000 mg 09/26/21 16:08 09/26/21 17:01 Acetaminophen 500 Mg Tab PO 09/26/21 16:09 1,000 mg ONETIME ONE Administration Albuterol 6.7 gm 09/26/21 16:14 09/26/21 17:02 Albuterol 6.7 Gm Inhaler INH 09/26/21 16:15 6.7 gm ONETIME ONE Administration Benzonatate 100 mg 09/26/21 16:08 09/26/21 17:02 Benzonatate 100 Mg Cap PO 09/26/21 16:09 100 mg ONETIME ONE Administration Dexamethasone 6 mg 09/26/21 16:07 09/26/21 17:02 Dexamethasone 4 Mg/Ml Sdv IVPUSH 09/26/21 16:08 6 mg ONETIME ONE Administration - Re-Assessments/Exams Free Text/Narrative Re-Assessment/Exam: 09/26/21 D-dimer repeated given persistent SOB. Albuterol MDI and Dexamethasone 6mg IVP administered for SOB. Tessalon 100mg PO administered for cough. Acetaminophen 1000mg PO administered for headache. Findings of examination and lab work reviewed with patient. Will not repeat imaging given recent CT chest on 09/22 as well as clear lung sidhu and appropriate d-dimer. Will treat symptoms with albuterol nebs, dexamethasone, and Tessalon. Supportive cares discussed. Patient instructed to remain in quarantine until 24 hours afebrile without antipyretics as well as reduction in symptom burden. Red flag signs and symptoms which would warrant immediate reevaluation reviewed. Patient verbalized understanding and agreement with the plan of care. Departure - Departure Time of Disposition: 16:45 Disposition: Home, Self-Care 01 Condition: Fair Clinical Impression: Pneumonia due to COVID-19 virus, Pleuritis - Discharge Information *PRESCRIPTION DRUG MONITORING PROGRAM REVIEWED*: Not Applicable *COPY OF PRESCRIPTION DRUG MONITORING REPORT IN PATIENT ENOCH: Not Applicable Instructions: Pleurisy Forms: ED Department Discharge Additional Instructions: Rx: dexamethasone 6mg (#7) Rx: Tessalon Perles 100mg (#21) 1.) Continue with quarantine per State Health Department Guidelines until you are symptom free for 24 hours. 2.) Continue with your nebulizers every four hours, until your work of breathing improves. 3.) You may take ibuprofen (Advil/Motrin) 400-800mg every six hours, for muscle aches and pleuritis. You may also take acetaminophen (Tylenol) 650-1000mg every six hours, as pain persists. You may stagger these medications so you are taking a dose of either every three hours. 4.) Drink large volumes of water to stay hydrated. 5.) Eat small, snack like meals.
[2021-09-26 15:58] LABS: ANION GAP 13.4 mEq/L (7-13); CHLORIDE,CL 100 mmol/L (98-107); SODIUM,NA 136 mmol/L (136-145)
[2021-09-26] MEDS ORDERED: Dexamethasone 4 MG/ML SDV IVPUSH ONE (16:07)
[2021-09-26] MEDS ORDERED: Benzonatate 100 MG Cap PO ONE (16:08)
[2021-09-26] MEDS ORDERED: Acetaminophen 500 MG Tab PO ONE (16:08)
[2021-09-26] MEDS ORDERED: Albuterol 6.7 GM Inhaler INH ONE (16:14)
[2021-09-26 18:44] VITALS: BP 124/88; PULSE 88
== END 2021-09-26 18:00 | disposition home or self-care (01) ==
LOC: DL.ED 14:43
DX: U07.1 COVID-19 (principal); J12.82 Pneumonia due to coronavirus disease 2019; R09.1 Pleurisy; E66.9 Obesity, unspecified; Z68.30 Body mass index [BMI] 30.0-30.9, adult
CPT/HCPCS: 36415; 80053; 80307; 83605; 83880; 84484; 85025; 85379; 86140; 96374; 99285; A9270; J1100

== ENCOUNTER 2022-05-15 22:32 | Emergency (ER) | payer MEDICAID ==
[2022-05-15] MEDS ORDERED: Benzonatate 100 MG Cap PO ONE (22:33)
[2022-05-15] MEDS ORDERED: Ondansetron 4 MG Tab.DIS PO ONE (22:33)
[2022-05-15 23:25] LABS: ANION GAP 15.9 mEq/L (7-13)
[2022-05-16 00:07] LABS: CORONAVIRUS COVID-19 NAA POSITIVE (NEGATIVE)
[2022-05-16] MEDS: Ondansetron 4 MG/2 ML SDV IVPUSH ONE (00:50)
[2022-05-16] MEDS: Potassium Chloride 10 MEQ Tab.ER PO ONE (00:52)
[2022-05-16] MEDS: Benzonatate 100 MG Cap PO ONE (00:53)
[2022-05-16] MEDS: Acetaminophen 500 MG Tab PO ONE (00:53)
[2022-05-16 01:38] VITALS: BP 123/81; PULSE 92
[2022-05-16] MEDS ORDERED: Benzonatate 100 MG Cap ONE (02:16)
[2022-05-16] MEDS ORDERED: Ondansetron 4 MG Tab.DIS ONE (02:17)
== END 2022-05-16 02:31 | disposition home or self-care (01) ==
LOC: DL.ED 22:32
DX: U07.1 COVID-19 (principal); F32.A Depression, unspecified; E66.9 Obesity, unspecified; Z68.30 Body mass index [BMI] 30.0-30.9, adult; Z79.899 Other long term (current) drug therapy; Z88.1 Allergy status to other antibiotic agents
CPT/HCPCS: 0240U; 36415; 71045; 80053; 82150; 83605; 83690; 84484; 85025; 85379; 86140; 93005; 96374; 99285-25; A9270-GY; J2405

== ENCOUNTER 2022-06-16 02:05 | Emergency (ER) | payer MEDICAID ==
[2022-06-16] MEDS ORDERED: MVI, Adult with Vitamin K 10 ML, Folic Acid 1 MG, Thiamine 100 MG in Lactated Ringers 1... IV ONE ×4 (02:33)
[2022-06-16 02:39] LABS: AMPHETAMINES,URINE NEGATIVE (NEGATIVE); BARBITURATES,URINE NEGATIVE (NEGATIVE); BENZODIAZEPINE,URINE NEGATIVE (NEGATIVE); MDMA (ECSTASY), URINE NEGATIVE (NEGATIVE); METHADONE,URINE NEGATIVE (NEGATIVE); METHAMPHETAMINES,URINE NEGATIVE (NEGATIVE); OPIATES,URINE NEGATIVE (NEGATIVE); OXYCODONE,URINE NEGATIVE (NEGATIVE); PHENCYCLIDINE,URINE NEGATIVE (NEGATIVE); TCA,URINE NEGATIVE (NEGATIVE)
[2022-06-16 02:52] LABS: ANION GAP 13.6 mEq/L (7-13)
[2022-06-16 06:44] VITALS: BP 109/70; PULSE 77
== END 2022-06-16 09:31 | disposition other institution (70) ==
LOC: DL.ED 02:05
DX: F10.920 Alcohol use, unspecified with intoxication, uncomplicated (principal); I10 Essential (primary) hypertension; E11.9 Type 2 diabetes mellitus without complications; E66.9 Obesity, unspecified; Z68.29 Body mass index [BMI] 29.0-29.9, adult; Z86.16 Personal history of COVID-19; Z79.899 Other long term (current) drug therapy; Z79.84 Long term (current) use of oral hypoglycemic drugs; X83.8XXA Intentional self-harm by other specified means, initial encounter
CPT/HCPCS: 36415; 80053; 80143; 80179; 80305-QW; 80307; 81001; 85025; 99283; 99285; J3411; J3490; J7120

== ENCOUNTER 2022-08-05 00:48 | Emergency (ER) | payer MEDICAID ==
[2022-08-05] MEDS ORDERED: Ketorolac 30 MG/ML SDV IM ONE (01:20)
== END 2022-08-05 05:36 | disposition home or self-care (01) ==
LOC: DL.ED 00:48
DX: S40.011A Contusion of right shoulder, initial encounter (principal); W10.9XXA Fall (on) (from) unspecified stairs and steps, initial encounter
CPT/HCPCS: 73030-RT; 96372; 99283; J1885

== ENCOUNTER 2023-03-04 22:10 | Inpatient (IN) | payer MEDICAID ==
[2023-03-04] MEDS ORDERED: Sodium Chloride 0.9% 1,000 ML IV ONE (22:11)
[2023-03-04 22:51] LABS: BASOPHILS PERCENT AUTO 0.2 % (0.0-1.0); EOSINOPHILS PERCENT AUTO 2.1 % (1.0-3.0); HEMATOCRIT 42.5 % (37.0-47.0); HEMOGLOBIN 14.1 g/dL (12.0-16.0); LYMPHOCYTES PERCENT AUTO 36.3 % (20.5-50.1); MEAN CORPUSCULAR HEMOGLOBIN 29.4 pg (27.0-34.0); MEAN CORPUSCULAR HGB CONC 33.2 g/dL (33.0-35.0); MEAN CORPUSCULAR VOLUME 88.7 fL (80-100); MONOCYTES PERCENT AUTO 10.1 % (2-8); NEUTROPHILS PERCENT AUTO 51.3 % (42.2-75.2); PLATELET COUNT,PLT 311 10^3/uL (150-450); RED BLOOD CELL COUNT 4.79 10^6/uL (4.2-5.4); WHITE BLOOD CELL COUNT,WBC 6.3 10^3/uL (5.0-10.0)
[2023-03-04] MEDS ORDERED: Ondansetron 4 MG/2 ML SDV IVPUSH ONE (23:08)
[2023-03-04 23:13] LABS: MDMA (ECSTASY), URINE NEGATIVE (NEGATIVE); METHAMPHETAMINES,URINE NEGATIVE (NEGATIVE)
[2023-03-04 23:14] LABS: HCG QUALITATIVE,SERUM NEGATIVE (NEGATIVE)
[2023-03-04 23:14] LABS: AMPHETAMINES,URINE NEGATIVE (NEGATIVE); BARBITURATES,URINE NEGATIVE (NEGATIVE); BENZODIAZEPINE,URINE NEGATIVE (NEGATIVE); METHADONE,URINE NEGATIVE (NEGATIVE); OPIATES,URINE NEGATIVE (NEGATIVE); OXYCODONE,URINE NEGATIVE (NEGATIVE); PHENCYCLIDINE,URINE NEGATIVE (NEGATIVE); TCA,URINE NEGATIVE (NEGATIVE)
[2023-03-04 23:14] LABS: APPEARANCE,URINE CLEAR (CLEAR); BILIRUBIN,URINE NEGATIVE (NEGATIVE); COLOR,URINE YELLOW (YELLOW); GLUCOSE,URINE NEGATIVE (NEGATIVE); KETONES,URINE NEGATIVE (NEGATIVE); LEUKOCYTE ESTERASE,URINE NEGATIVE (NEGATIVE); NITRITE,URINE NEGATIVE (NEGATIVE); OCCULT BLOOD,URINE SMALL (NEGATIVE); PROTEIN,URINE NEGATIVE (NEGATIVE); UROBILINOGEN,URINE 0.2 mg/dL (0.2-1.0)
[2023-03-04 23:22] LABS: LACTIC ACID 1.6 mmol/L (0.4-2.0)
[2023-03-04 23:23] LABS: A/G RATIO 0.8; ALANINE AMINOTRANSFERASE,ALT 28 U/L (14-59); ALBUMIN 3.5 g/dL (3.4-5.0); ALKALINE PHOSPHATASE 127 U/L (46-116); AMYLASE 67 U/L (25-115); ANION GAP 12.7 mEq/L (7-13); ASPARTATE AMNIOTRANSFERASE,AST 29 U/L (15-37); BILIRUBIN TOTAL 0.1 mg/dL (0.2-1.0); BLOOD UREA NITROGEN,BUN 11 mg/dL (7-18); C-REACTIVE PROTEIN 0.9 mg/dL (0.0-0.9); CALCIUM 8.1 mg/dL (8.5-10.1); CARBON DIOXIDE,CO2 23 mmol/L (21-32); CHLORIDE,CL 110 mmol/L (98-107); CREATININE 0.55 mg/dL (0.55-1.02); EST CRCL DRUG DOSING (CG) 106.84 mL/min; ETHANOL BLOOD MEDICAL 223 mg/dL (0); GLUCOSE RANDOM 116 mg/dL (70-99); LIPASE 135 U/L (73-393); POTASSIUM,K 3.7 mmol/L (3.5-5.1); PROTEIN TOTAL,TP 7.7 g/dL (6.4-8.2); SODIUM,NA 142 mmol/L (136-145); TSH ULTRASENSITIVE 0.71 uIU/mL (0.36-3.74)
[2023-03-04 23:26] LABS: ACETAMINOPHEN 0 ug/mL (10-30 (Therapeutic)); ESTIMATED GFR 112 mL/min (>=60)
[2023-03-04 23:41] LABS: BACTERIA,URINE RARE /HPF (0-FEW/HPF); EPITHELIAL CELLS,URINE NOT SEEN /HPF (NOT SEEN); RBC,URINE 0-5 /HPF (0-5); WBC,URINE 0-5 /HPF (0-5/HPF)
[2023-03-05] MEDS ORDERED: Metoclopramide 10 MG/2 ML SDV IVPUSH ONE (00:05)
[2023-03-05] MEDS ORDERED: Docusate Sodium 100 MG Cap PO PRN (01:32)
[2023-03-05] MEDS ORDERED: Bisacodyl 5 MG Tab PO PRN (01:32)
[2023-03-05] MEDS ORDERED: Ondansetron 4 MG/2 ML SDV IVPUSH PRN (01:32)
[2023-03-05] MEDS ORDERED: Enoxaparin 40 MG/0.4 ML Syringe SUBCUT SCH (09:00)
[2023-03-05] MEDS ORDERED: Ibuprofen 800 MG Tab PO PRN (09:48)
[2023-03-05] MEDS ORDERED: Lidocaine 5% 700 MG Patch TOP SCH (10:00)
[2023-03-05 13:52] VITALS: BP 126/84; PULSE 98
[2023-03-06] MEDS ORDERED: Calcium Carbonate/Vitamin D3 1250 MG-5 MCG Tab PO SCH (09:00)
[2023-03-06] MEDS ORDERED: Lisinopril 10 MG Tab PO SCH (09:00)
[2023-03-06] MEDS ORDERED: Cholecalciferol (Vitamin D3) 25 MCG Tab PO SCH (09:00)
[2023-03-06] MEDS ORDERED: metFORMIN 500 MG Tab PO SCH (09:00)
== END 2023-03-05 14:20 | disposition home or self-care (01) | DRG 918 ==
LOC: DL.ED 22:10 → DL.MS 03-05 00:12 → DL.ED 03-05 00:37
PROVIDERS: ADMIT Internal Medicine; ATTEND Internal Medicine
DX: T43.212A Poisoning by selective serotonin and norepinephrine reuptake inhibitors, intentional self-harm, initial encounter (principal); H54.7 Unspecified visual loss; Z20.822 Contact with and (suspected) exposure to COVID-19; I10 Essential (primary) hypertension; G89.29 Other chronic pain; F17.210 Nicotine dependence, cigarettes, uncomplicated; F10.129 Alcohol abuse with intoxication, unspecified; M54.9 Dorsalgia, unspecified; F32.A Depression, unspecified; E11.9 Type 2 diabetes mellitus without complications; E66.9 Obesity, unspecified; Z79.84 Long term (current) use of oral hypoglycemic drugs; Z79.899 Other long term (current) drug therapy; Z83.3 Family history of diabetes mellitus; Z68.29 Body mass index [BMI] 29.0-29.9, adult
CPT/HCPCS: 36415; 80053; 80143; 80179; 80305-QW; 80307; 81001; 82140; 82150; 82947; 83605; 83690; 83735; 84443; 84484; 84703; 85025; 86140; 93005; 93010; 96361; 96374; 96375; 99285; 99285-25; A9270-GY; J1650; J2405; J2765; J7030; U0002

== ENCOUNTER 2023-07-15 15:51 | Emergency (ER) | payer MEDICAID ==
[~2023-07-15 15:51] MED LIST changes: -MVI, Adult with Vitamin K 10 ML, Thiamine 100 MG, Folic Acid 1 MG in Lactated Ringers 1... IV ONE; +Sodium Chloride 0.9% 10 ML Syringe FLUSH PRN
[2023-07-15 15:58] LABS: EOSINOPHILS PERCENT AUTO 1.1 % (1.0-3.0); HEMATOCRIT 40.7 % (37.0-47.0); HEMOGLOBIN 14.6 g/dL (12.0-16.0); LYMPHOCYTES PERCENT AUTO 33.9 % (20.5-50.1); MEAN CORPUSCULAR HEMOGLOBIN 32.2 pg (27.0-34.0); MEAN CORPUSCULAR HGB CONC 35.9 g/dL (33.0-35.0); MEAN CORPUSCULAR VOLUME 89.8 fL (80-100); MONOCYTES PERCENT AUTO 8.2 % (2-8); NEUTROPHILS PERCENT AUTO 56.8 % (42.2-75.2); PLATELET COUNT,PLT 274 10^3/uL (150-450); RED BLOOD CELL COUNT 4.53 10^6/uL (4.2-5.4); WHITE BLOOD CELL COUNT,WBC 7.2 10^3/uL (5.0-10.0)
[2023-07-15 16:19] VITALS: BP 139/104; PULSE 99
[2023-07-15 16:21] LABS: LACTIC ACID 1.5 mmol/L (0.4-2.0)
[2023-07-15 16:28] LABS: A/G RATIO 0.9; ALANINE AMINOTRANSFERASE,ALT 30 U/L (14-59); ALBUMIN 3.7 g/dL (3.4-5.0); ALKALINE PHOSPHATASE 109 U/L (46-116); ANION GAP 15.1 mEq/L (7-13); ASPARTATE AMNIOTRANSFERASE,AST 31 U/L (15-37); BILIRUBIN TOTAL 0.4 mg/dL (0.2-1.0); BLOOD UREA NITROGEN,BUN 16 mg/dL (7-18); BUN/CREATININE RATIO 22.9 (No establ ref range); C-REACTIVE PROTEIN 1.06 ng/dL (<=0.30); CALCIUM 9.1 mg/dL (8.5-10.1); CARBON DIOXIDE,CO2 25 mmol/L (21-32); CHLORIDE,CL 103 mmol/L (98-107); EST CRCL DRUG DOSING (CG) 94.54 mL/min; GLUCOSE RANDOM 142 mg/dL (70-99); POTASSIUM,K 3.1 mmol/L (3.5-5.1); PROTEIN TOTAL,TP 7.6 g/dL (6.4-8.2); SODIUM,NA 140 mmol/L (136-145)
[2023-07-15 16:30] LABS: ESTIMATED GFR 106 mL/min (>=60); ETHANOL BLOOD MEDICAL < 3 mg/dL (0)
[2023-07-15 16:34] LABS: PROTHROMBIN TIME 9.9 SEC (9.0-12.0); PTT,PARTIAL THROMBOPLSTIN TIME 25.6 SEC (22.0-34.0)
[2023-07-15] MEDS ORDERED: Potassium Chloride 10 MEQ Tab.ER PO ONE (16:54)
[2023-07-15 17:58] LABS: APPEARANCE,URINE CLEAR (CLEAR); BILIRUBIN,URINE NEGATIVE (NEGATIVE); COLOR,URINE YELLOW (YELLOW); GLUCOSE,URINE NEGATIVE (NEGATIVE); KETONES,URINE NEGATIVE (NEGATIVE); LEUKOCYTE ESTERASE,URINE NEGATIVE (NEGATIVE); NITRITE,URINE NEGATIVE (NEGATIVE); OCCULT BLOOD,URINE TRACE-INTACT (NEGATIVE); PH,URINE 6.5 (5.0-9.0); PROTEIN,URINE NEGATIVE (NEGATIVE); UROBILINOGEN,URINE 0.2 mg/dL (0.2-1.0)
[2023-07-15 18:02] LABS: AMPHETAMINES,URINE NEGATIVE (NEGATIVE); BARBITURATES,URINE NEGATIVE (NEGATIVE); BENZODIAZEPINE,URINE NEGATIVE (NEGATIVE); MDMA (ECSTASY), URINE NEGATIVE (NEGATIVE); METHADONE,URINE NEGATIVE (NEGATIVE); METHAMPHETAMINES,URINE POSITIVE (NEGATIVE); OPIATES,URINE NEGATIVE (NEGATIVE); OXYCODONE,URINE NEGATIVE (NEGATIVE); PHENCYCLIDINE,URINE NEGATIVE (NEGATIVE); TCA,URINE NEGATIVE (NEGATIVE)
[2023-07-15 18:10] LABS: BACTERIA,URINE FEW /HPF (0-FEW/HPF); EPITHELIAL CELLS,URINE FEW /HPF (NOT SEEN); RBC,URINE 0-5 /HPF (0-5); WBC,URINE 0-5 /HPF (0-5/HPF)
[2023-07-15] MEDS ORDERED: Acetaminophen 500 MG Tab PO ONE (18:46)
== END 2023-07-15 20:20 ==
LOC: DL.ED 15:51
DX: S80.812A Abrasion, left lower leg, initial encounter (principal); S80.811A Abrasion, right lower leg, initial encounter; R45.851 Suicidal ideations; I10 Essential (primary) hypertension; E11.9 Type 2 diabetes mellitus without complications; E66.9 Obesity, unspecified; Z86.16 Personal history of COVID-19; Z20.822 Contact with and (suspected) exposure to COVID-19; Z79.84 Long term (current) use of oral hypoglycemic drugs; Z79.899 Other long term (current) drug therapy; X78.9XXA Intentional self-harm by unspecified sharp object, initial encounter; Z68.29 Body mass index [BMI] 29.0-29.9, adult
CPT/HCPCS: 36415; 70450; 71045; 72125; 80053; 80143; 80179; 80305-QW; 80307; 81001; 81025; 83605; 84145; 85025; 85610; 85730; 86140; 93005; 93010; 99285; A9270-GY; J3490; U0002

== ENCOUNTER 2025-08-01 13:08 | Emergency (ER) | payer MEDICAID, OTHER ==
[2025-08-01 13:20] LABS: BASOPHILS PERCENT AUTO 0.1 % (0.0-1.0); EOSINOPHILS PERCENT AUTO 0.5 % (1.0-3.0); LYMPHOCYTES PERCENT AUTO 22.4 % (20.5-50.1); MONOCYTES PERCENT AUTO 9.7 % (2-8); NEUTROPHILS PERCENT AUTO 67.3 % (42.2-75.2); PLATELET COUNT,PLT 337 10^3/uL (150-450); RED BLOOD CELL COUNT 4.59 10^6/uL (4.2-5.4); WHITE BLOOD CELL COUNT,WBC 11.4 10^3/uL (5.0-10.0)
[2025-08-01 13:29] VITALS: BP 144/115; PULSE 96
[2025-08-01 13:33] LABS: A/G RATIO 0.9; ALANINE AMINOTRANSFERASE,ALT 28.0 U/L (14-59); ASPARTATE AMNIOTRANSFERASE,AST 19.0 U/L (15-37); BILIRUBIN TOTAL 0.2 mg/dL (0.2-1.0); BLOOD UREA NITROGEN,BUN 16.0 mg/dL (7-18); CARBON DIOXIDE,CO2 25.0 mmol/L (21-32); CHLORIDE,CL 107.0 mmol/L (98-107); CREATININE 0.74 mg/dL (0.55-1.02); EST CRCL DRUG DOSING (CG) 84.2 mL/min; GLUCOSE RANDOM 91.0 mg/dL (70-99); POTASSIUM,K 3.8 mmol/L (3.5-5.1); PROTEIN TOTAL,TP 7.8 g/dL (6.4-8.2); SODIUM,NA 143.0 mmol/L (136-145)
[2025-08-01 13:35] LABS: ESTIMATED GFR 98.0 mL/min (>=60)
== END 2025-08-01 14:02 | disposition home or self-care (01) ==
LOC: DL.ED 13:08
DX: R07.89 Other chest pain (principal); I10 Essential (primary) hypertension; E11.9 Type 2 diabetes mellitus without complications; Z86.16 Personal history of COVID-19; Z79.899 Other long term (current) drug therapy; Z79.84 Long term (current) use of oral hypoglycemic drugs
CPT/HCPCS: 36415; 71045; 80053; 83735; 84484; 85025; 93005; 99283; 99285